=== PATIENT | female | born 1960 | race Caucasian/White ===

== ENCOUNTER 2017-02-14 10:17 | Emergency (ER) | payer BC, OTHER ==
--- NOTE | 2017-02-14 10:26 | ED Physician Documentation ---
General Adult - HISTORIAN Historian: patient - HPI Chief Complaint: General Adult Onset: hours (18 hours) Timing: still present Further Comments: yes (Patient states that yesterday afternoon over about 15-30 minutes noticed that she was having some numbness and coordination problems with her left side. Has been having some mild swallowing difficutiles, her speech has been slurred. Not sure if she is having any weakness to the left side. No previous episodes. Patient feels that her symptoms have been stable since that time. Sister states that her speech seems more slurred this AM. Has a history of HTN. Only takes her BP meds sporadically. No sure if her cholesterol is elevated or not) Last known Well Date: 02/13/17 Last Known Well Time: 16:30 Last known Well Code/Unknown Code: Known - ROS CONST: no problems CVS/RESP: none GI/: none - PAST HX Past History: hypertension Surgeries/Procedures: hysterectomy Allergies/Adverse Reactions: Allergies Allergy/AdvReac Type Severity Reaction Status Date / Time No Known Allergies Allergy Verified 02/14/17 10:34 Home Medications: Ambulatory Orders Medication Instructions Recorded Lisinopril/Hydrochlorothiazide 1 each PO BID 02/14/17 [Zestoretic] amLODIPine BESYLATE [Norvasc] 10 mg PO 0900 02/14/17 - SOCIAL HX Smoking History: non-smoker Alcohol Use: none Drug Use: none - FAMILY HX Family History: No - REVIEWED ASSESSMENTS Nursing Assessment Reviewed: Yes Vitals Reviewed: Yes Progress - Progress Progress: 11:05 Symptoms stable 11:54 Stable, NIH 5 ED Results Lab/Radiology - Radiology Radiology Impressions: CT scan of the head: normal General Adult Physical Exam - PHYSICAL EXAM GENERAL APPEARANCE: mild distress EENT: eye inspection normal, ENT inspection normal, pharynx normal, no signs of dehydration NECK: normal inspection, thyroid normal, supple. No: carotid bruit RESPIRATORY: no resp distress, chest non-tender, breath sounds normal. No: wheezes, rales, rhonchi CVS: reg rate & rhythm, heart sounds normal, equal pulses, no murmur, no gallop ABDOMEN: soft, no organomegaly, normal bowel sounds, no abdominal bruit, no distension, non-tender SKIN: warm/dry, normal color EXTREMITIES: non-tender, normal range of motion, no evidence of injury NEURO: oriented X3, mood/affect nml, cognition normal, weakness/sensory loss ( MIld decrease sensation to light touch to the Left trunk, LUE, LLE, left cheek area. Left forehead seems to be normal.). No: CN's nml as tested (left tongue deviation, mild left facial droop), motor nml (Mild left pronator drift on the left, left gripp is weaker then the right. LE strength normal bilaterally. ) Discharge Clincal Impression: Left-sided muscle weakness, Numbness on left side, Hypertension Referrals: Cecilia Aguilar FNP [Primary Care Provider] - 2 Days Home Medications: Ambulatory Orders Lisinopril/Hydrochlorothiazide [Zestoretic] 1 each PO BID 02/14/17 amLODIPine BESYLATE [Norvasc] 10 mg PO 0900 02/14/17 Condition: Stable Disposition: 02 XFER S[facility]M HOSP Decision to Admit: [id number] Date of Decison to Admit: 02/14/17 Decision Time: 11:10
[2017-02-14] MEDS ORDERED: ONDANSETRON HCL/PF 4 MG/ 2ML VIAL IVP ONE (10:44)
[2017-02-14] MEDS ORDERED: hydrALAZINE HCL 20 MG/1 ML IVP ONE (10:44)
[2017-02-14 11:03] LABS: BASOPHILS % 0.7 (0.0-1.5); EOSINOPHILS % 2.2 % (0.0-6.8); LYMPHOCYTES # 1.8 # k/uL (0.6-4.0); MEAN CORPUSCULAR HEMOGLOBIN 28.2 pg (28.0-34.0); MONOCYTES # 0.4 # k/uL (0.0-0.9); MONOCYTES % 5.4 % (0.0-11.0)
[2017-02-14 11:09] LABS: eGFR (African) > 60; eGFR (Non-African) > 60
[2017-02-14 11:59] VITALS: BP 141/96
--- NOTE | 2017-02-14 13:01 | Diagnostic Imaging Report ---
CARLOS MONROE~ [facility] [address] [facility] [address] [place], [place]. [address] ~ ~ ~ ~ Report Submission Date: Feb 14, 2017 10:51:06 AM CDT Patient ~ Study Name: MIKY ABBOTT ~ Date: Feb 14, 2017 10:34:39 AM CDT ~ Modality Type: CT\SR Gender: F ~ Description: CT BRAIN W/O CONTRAST : 62 ~ Institution: [facility] Physician: CARLOS MONROE ~ ~ ~ ~ CT HEAD WO CONTRAST History: PT STATES VERTIGO AND LEFT SIDE OF BODY NUMBNESS SINCE YESTERDAY Technique: Standard noncontrast CT was performed with contiguous axial images acquired from skull base to vertex. Findings: There is no acute extra-axial fluid collection. Ventricles are of normal size, shape, and morphology. No mass effect or midline shift is present. No evidence of acute hemorrhage. The~lord-white matter differentiation is normal. The visualized portions of the orbits, and paranasal sinuses, and mastoids are normal. No fractures are identified. Impression: 1. Normal non contrast brain CT. ~ Electronically signed on Feb 14, 2017 10:51:06 AM CDT by: Gurjit Jeffrey [facility]al
== END 2017-02-14 11:57 | disposition short-term general hospital (02) ==
LOC: ED 10:17
DX: I10 Essential (primary) hypertension (principal); R53.1 Weakness
CPT/HCPCS: 70450; 80053; 85025; 85610; 85730; J0360; J2405; 99283; S1016

== ENCOUNTER 2017-03-20 07:02 | Outpatient (CLI) | payer OTHER ==
[2017-03-21 08:49] LABS: eGFR (African) > 60; eGFR (Non-African) > 60
== END 2017-03-20 07:03 ==
LOC: LAB 07:02
PROVIDERS: ATTEND Family Medicine
DX: E78.5 Hyperlipidemia, unspecified (principal); I10 Essential (primary) hypertension; Z86.73 Personal history of transient ischemic attack (TIA), and cerebral infarction without residual deficits
CPT/HCPCS: 80053; 80061